=== PATIENT | female | born 1940 | race Caucasian/White ===

== ENCOUNTER 2018-11-27 09:30 | Outpatient (CLI) | payer OTHER ==
[2018-11-27] MEDS ORDERED: BARIUM SULFATE 135 ML SUSP.RECON (E-Z-HD) PO ONE (10:07)
== END 2018-11-27 21:11 | disposition home or self-care (01) ==
LOC: SRD 09:30
PROVIDERS: ATTEND Family Medicine Geriatric Medicine
DX: K22.4 Dyskinesia of esophagus (principal); K22.5 Diverticulum of esophagus, acquired
CPT/HCPCS: 74220-TC